=== PATIENT | male | born 1940 | race Caucasian/White ===

== ENCOUNTER 2017-08-25 05:50 | Inpatient (IN) | payer BC ==
[2017-08-19 15:25] VITALS: BMI 31.8
[2017-08-25] VITALS (24 sets, daily range): BP systolic 135–165; BP diastolic 66–81; PULSE 62–82; RESP 11–22; Ht 177.8 cm; Wt 99.4 kg
[~2017-08-25] VITALS: Ht 177.8 cm; Wt 99.4 kg
[2017-08-25] MEDS ORDERED: ALLO100T PO (06:32)
[2017-08-25] MEDS ORDERED: ATOR40TA68 PO (06:32)
[2017-08-25] MEDS ORDERED: DOCU50CA9 PO (06:44)
[2017-08-25] MEDS ORDERED: ESCI20TA PO (06:44)
[2017-08-25] MEDS ORDERED: OXYC15TA PO (06:44)
[2017-08-25] MEDS ORDERED: ISM20 PO (06:44)
[2017-08-25] MEDS ORDERED: CARI350T29 PO (06:44)
[2017-08-25] MEDS ORDERED: TAMS0.4C2 PO (06:44)
[2017-08-25] MEDS ORDERED: FLUT9.9S NASAL (06:44)
[2017-08-25] MEDS ORDERED: HYDR12.58 PO (06:44)
[2017-08-25] MEDS ORDERED: VIT1TABL32 PO (06:44)
[2017-08-25] MEDS ORDERED: BUPR150T6 PO (06:44)
[2017-08-25] MEDS ORDERED: LEVO25TA59 PO (06:44)
[2017-08-25] MEDS ORDERED: APIX5TAB PO (06:44)
[2017-08-25] MEDS ORDERED: POLYMYXIN/BACITRACIN 1L IRRIG ONE (06:49)
--- NOTE | 2017-08-25 06:53 | HPN ---
Date/Time of Note Date/Time of Note DATE: 08/25/17 TIME: 06:52 Interval H&P Admission Note Pt. seen H&P reviewed: No system changes JULIANN WOOD PA-C Aug 25, 2017 06:53
[2017-08-25] MEDS ORDERED: PROPOFOL 20 ML ONE (07:24)
[2017-08-25] MEDS ORDERED: GLYCOPYRROLATE 0.4 MG INJ ONE (07:24)
[2017-08-25] MEDS ORDERED: ROCURONIUM 50 MG INJ ONE (07:24)
[2017-08-25] MEDS ORDERED: CEFAZOLIN 1 GM INJ ONE (07:24)
[2017-08-25] MEDS ORDERED: ONDANSETRON 4 MG INJ ONE (07:24)
[2017-08-25] MEDS ORDERED: NEOSTIGMINE 3 MG/3 ML SYRINGE ONE (07:24)
[2017-08-25] MEDS ORDERED: MIDAZOLAM 1 MG/ML 2 ML INJ ONE (07:24)
[2017-08-25] MEDS ORDERED: FENTAnyl 50 MCG/ML VIAL ONE (07:24)
[2017-08-25] MEDS ORDERED: DEXAMETHASONE 4 MG/ML 1 ML INJ ONE (07:25)
[2017-08-25] MEDS ORDERED: ROPIVACAINE 0.5 % 30 ML VIAL ONE (07:28)
[2017-08-25] MEDS ORDERED: CEFAZOLIN 2 GM/50 ML (PMX) 50 ML (FOR WT < 120 KG) IVPB ONE (07:30)
[2017-08-25] MEDS ORDERED: TRANEXAMIC ACID 1,000 MG in SOD CHLORIDE 0.9% 100 ML IV ONE ×2 (07:30→08:00)
[2017-08-25] MEDS ORDERED: hydrALAzine 20 MG INJ ONE ×2 (07:51→09:28)
[2017-08-25] MEDS ORDERED: DIPHENHYDRAMINE 50 MG INJ IV PRN ×2 (08:30→10:30)
[2017-08-25] MEDS ORDERED: IPRATROPIUM (NEB) 0.5 MG/2.5 ML AMP HHN PRN (08:30)
[2017-08-25] MEDS ORDERED: ONDANSETRON 4 MG INJ IV PRN ×2 (08:30→10:30)
[2017-08-25] MEDS ORDERED: OXYCODONE/ACETAMINOPHEN (5/325) TAB PO PRN ×4 (08:30→10:30)
[2017-08-25] MEDS ORDERED: hydrALAzine 20 MG INJ IV PRN (08:30)
[2017-08-25] MEDS ORDERED: HYDROmorphONE (0.2 MG/ML) 10ML SYG IV PRN ×3 (08:30)
[2017-08-25] MEDS ORDERED: TRIMETHOBENZAMIDE 100 MG/ML VIAL IM PRN ×2 (08:30→10:30)
[2017-08-25] MEDS ORDERED: MIDAZOLAM 1 MG/ML 2 ML INJ IV PRN (08:30)
[2017-08-25] MEDS ORDERED: FENTAnyl 50 MCG/ML VIAL IV PRN ×3 (08:30)
[2017-08-25] MEDS ORDERED: EPHEDrine SULFATE 50 MG/5 ML SYG IV PRN (08:30)
[2017-08-25] MEDS ORDERED: ALBUTEROL 0.083% (NEB) 2.5 MG/3 ML AMP HHN PRN (08:30)
[2017-08-25] MEDS ORDERED: MEPERIDINE 25 MG INJ IV PRN (08:30)
[2017-08-25] MEDS ORDERED: LABETALOL HCL 20MG INJ IV PRN (08:30)
--- NOTE | 2017-08-25 09:45 | SIPON ---
Date/Time of Note Date/Time of Note DATE: 08/25/17 TIME: 09:43 Operative Report Preoperative Diagnosis Left shoulder osteoarthritis and avascular necrosis Postoperative Diagnosis Same Operation/Procedure Performed Left total shoulder replacement Surgeon see signature line vet assistant Dr. Timmy Quinn Second assist: JULIANN WOOD PA-C Anesthesia: general Estimated blood loss: 150 - 200 ml's Transfusion Required none Specimen bone Grafts/Implants DePuy 14 stem, 48 glenoid, 52 x 18 head Complications none JOSUE FONTAINE Aug 25, 2017 09:45
--- NOTE | 2017-08-25 09:50 | OPR ---
Date/Time of Note Date/Time of Note DATE: 08/25/17 TIME: 09:45 Operative Report Procedure Date: Aug 25, 2017 Preoperative Diagnosis Left shoulder osteoarthritis and avascular necrosis Postoperative Diagnosis Same Operation/Procedure Performed Left total shoulder replacement Surgeon see signature line Bottle Labeler Dr. Timmy Quinn Second Bottle Labeler: JULIANN WOOD PA-C Anesthesia Type: general Estimated Blood Loss: 150 - 200 ml's Transfusion none Specimen Bone Grafts/Implants depuy size 14 stem, 48 mm glenoid, 52 mm x 18 mm humeral head Tubes/Drains None Complications none Pt Condition Post Procedure: stable Disposition: PACU Indications The patient is a 76-year-old male with progressive and severe pain in his left shoulder related to avascular necrosis and osteoarthritis Procedure Description The patient was placed in a beachchair position. The cervical spine and head were stabilized with a Van headrest. The left shoulder was prepped and draped in usual manner. Preoperative antibiotics were administered. The left shoulder was approached anteriorly with a deltopectoral approach. The cephalic vein was identified and retracted laterally with the deltoid. The deltopectoral interval was developed. A biceps tenodesis was done. The capsule was opened 1 cm medial to the biceps groove and the subscapularis retracted medially. The conjoined tendon was retracted medially as well and the shoulder joint entered. There was severe osteoarthritis as well as softening of the humeral head with flattening related to avascular necrosis. The capsule around the proximal humerus was released significantly to allow external rotation and extension of the arm. This resulted in dislocation of the humeral head. The humeral neck cut was made in 30 of retroversion with the provided guide from the [place] shoulder system. The IM canal of the humerus was prepared for a size 14 humeral stem. The humerus was then retracted out of the way and the glenoid prepared. The glenoid was prepared for a 3 pegged component from the diffuse shoulder system. Once the glenoid was prepared the glenoid component was cemented in place. A 48 mm glenoid was used. Trials were done with a size 14 stem and a 52 mm x 18 mm head. This resulted in a stable shoulder with good range of motion. The trials were then removed. Final components were placed including a porous-coated size 14 stem with a 52 mm offset head. The shoulder was stable in all positions. Hemostasis was confirmed with electrocautery and the wound closed in layers including #2 Ethibond for repairing the subscapularis. #1 Vicryl for deep fascia, 2-0 Vicryl for subcutaneous tissue, 3-0 Monocryl for the skin. Patient was transferred to the recovery room in stable condition. JOSUE FONTAINE Aug 25, 2017 09:50
[2017-08-25] MEDS ORDERED: NA PHOSPHATE/BIPHOS 133 ML ENEMA PR PRN (10:30)
[2017-08-25] MEDS ORDERED: MAGNESIUM HYDROXIDE 30ML CUP PO PRN (10:30)
[2017-08-25] MEDS ORDERED: ZOLPIDEM 5 MG TAB PO PRN (10:30)
[2017-08-25] MEDS ORDERED: HYDROCODONE/APAP (5/325) TAB PO PRN ×2 (10:30)
[2017-08-25] MEDS ORDERED: BETHANECHOL 25 MG TAB PO PRN (10:30)
[2017-08-25] MEDS ORDERED: BISACODYL 10 MG SUPP PR PRN (10:30)
[2017-08-25] MEDS ORDERED: KETOROLAC 15 MG INJ IV PRN (10:30)
[2017-08-25] MEDS ORDERED: NACL 0.9% 3 ML SYG IV SCH (10:30)
[2017-08-25] MEDS ORDERED: IBUPROFEN 600 MG TAB PO PRN (11:00)
--- NOTE | 2017-08-25 11:14 | RADRPT ---
PROCEDURE: XR Left Shoulder. CLINICAL INDICATION: Left shoulder postoperative evaluation TECHNIQUE: 2 views of the left shoulder are available for review. COMPARISON: None available FINDINGS: There is a total left shoulder arthroplasty in anatomic alignment. There is overlying soft tissue swelling and soft tissue gas. No acute fracture is identified. The visualized left lung is clear. IMPRESSION: 1. Recent left shoulder total arthroplasty in anatomic alignment with overlying soft tissue swelling and gas. RPTAT: UU .Abram Gunderson MD, MD Date Time Electronically viewed and signed by .Abram Gunderson MD, MD on 08/25/2017 11:13 .K/
[2017-08-25] MEDS: CEFAZOLIN 1 GM/50 ML (PMX) 50 ML IVPB SCH ×2 (11:16→18:07)
[2017-08-25] MEDS ORDERED: ASPIRIN (EC) 325 MG TAB PO ONE (11:30)
[2017-08-25 11:45] LABS: BASOPHILS % 0.2 % (0.0-2.0); EOSINOPHILS % 0.4 % (0.0-7.0); HEMATOCRIT 42.6 % (42.0-52.0); HEMOGLOBIN 14.2 g/dl (14.0-18.0); LYMPHOCYTES # 0.7 10^3/ul (0.8-2.9); LYMPHOCYTES % 6.5 % (15.0-51.0); MEAN CORPUSCULAR HEMOGLOBIN 32.1 pg (29.0-33.0); MEAN CORPUSCULAR HGB CONC 33.3 g/dl (32.0-37.0); MEAN CORPUSCULAR VOLUME 96.2 fl (82.0-101.0); MEAN PLATELET VOLUME 9.8 fl (7.4-10.4); MONOCYTE # 0.2 10^3/ul (0.3-0.9); MONOCYTES % 1.5 % (0.0-11.0); NEUTROPHIL # 9.9 10^3/ul (1.6-7.5); NEUTROPHILS % 90.6 % (39.0-77.0); PLATELET COUNT 203 10^3/UL (140-415); RED BLOOD COUNT 4.43 10^6/ul (4.70-6.10); RED CELL DISTRIBUTION WIDTH 14.7 % (11.5-14.5); WHITE BLOOD COUNT 10.9 10^3/ul (4.8-10.8)
--- NOTE | 2017-08-25 11:58 | PDOCDIS ---
Discharge Instructions DIAGNOSIS Discharge Diagnosis Left total shoulder arthroplasty. CONDITION Patient Condition: Good HOME CARE INSTRUCTIONS: Diet Instructions: Regular ACTIVITY: Activity Restrictions: Slowly Increase Activity Rest between Activity Avoid heavy lifting (No weightbearing to the left upper extremity.) No Sexual Activity Do not Drive Do not operate Machinery Do not operate Power Tool Avoid Heavy Housework No Weight Bearing Bathing Restrictions: Shower (Mepilex dressing to remain on until seen postoperatively 10-14 days. Keep area clean and dry.) FOLLOW UP/APPOINTMENTS Follow-up Plan Follow-up 10-[address] Hsu. Postoperative appointment has been given to you at your preoperative examination. JULIANN WOOD PA-C Aug 25, 2017 11:58
[2017-08-25] MEDS ORDERED: LOPERAMIDE 2 MG CAP PO PRN (12:00)
[2017-08-25 12:26] LABS: CALCIUM 8.7 mg/dl (8.4-10.2); CREATININE 1.39 mg/dl (0.61-1.24); POTASSIUM 4.9 mmol/L (3.5-5.1)
[2017-08-25] MEDS ORDERED: CARISOPRODOL 350 MG TAB PO PRN (17:00)
--- NOTE | 2017-08-25 17:04 | HP ---
Date/Time of Note Date/Time of Note DATE: 08/25/17 TIME: 17:00 Assessment/Plan VTE Prophylaxis VTE Prophylaxis Intervention: other Lines/Catheters IV Catheter Type (from Nrs): Peripheral IV Urinary Cath still in place: No Assessment/Plan Chief Complaint/Hosp Course 1. Avascular necrosis in both shoulders status post left shoulder repair Pain control Likely DC home tomorrow 2. A. fib Continue Eliquis 3. History of coronary disease Continue home meds 4. Hypothyroidism Continue Synthroid Problems: HPI/ROS Admit Date/Time Admit Date/Time Aug 25, 2017 at 05:50 Hx of Present Illness Patient is a 76-year-old male with a history of A. fib, coronary disease status post stent placement, hypothyroidism as well as bilateral hip replacements, DJD of the spine and avascular necrosis in both shoulders now status post left shoulder replacement. Patient does currently report having some pain in the left shoulder, patient does take pain medications at home for his chronic back and shoulder pain. ROS Constitutional: improved, no complaints Eyes: no complaints ENT: no complaints Respiratory: no complaints Cardiovascular: no complaints Gastrointestinal: no complaints Genitourinary: no complaints Musculoskeletal: bone/joint pain Skin: no complaints Neurologic: no complaints Endocrine: no complaints Lymphatic: no complaints Psychological: nl mood/affect, no complaints Immunologic: no complaints PMH/Family/Social Past Medical History As per HPI Past Surgical History Bilateral hip replacement and now left shoulder replacement Family History Significant Family History: cancer (Colon cancer in the father) Social History Alcohol Use: none Smoking Status: Former smoker Drug Use: none Exam/Review of Systems Vital Signs Vitals Vital Signs Date Time Temp Pulse Resp B/P Pulse Ox O2 Delivery O2 Flow Rate FiO2 08/25/17 14:50 82 18 165/72 98 Nasal Cannula 2.0 08/25/17 12:35 98.2 Exam Constitutional: alert, oriented Respiratory: clear to auscultation Cardiovascular: regular rate and rhythm Gastrointestinal: soft, No distended Musculoskeletal: nl extremities to inspection Labs Result Diagram: 08/25/17 1129 08/25/17 1129 Medications Medications Current Medications Cefazolin Sodium (Ancef 1 Gm/50 ml (Pmx)) 50 ml @ 100 mls/hr Q8H IVPB Last administered on 08/25/17t 11:16; Admin Dose 100 MLS/HR; Start 08/25/17 at 11: 00; Stop 08/26/17 at 03:29 Senna/Docusate Sodium (Senokot-S) 1 tab BID PO ; Start 08/25/17 at 21:00 Simethicone (Mylicon) 80 mg TID PRN PO DISTENSION/GAS/BLOATING; Start at 10:30 Magnesium Hydroxide (Milk Of Mag) 30 ml BID PRN PO CONSTIPATION; Start at 10:30 Magnesium Hydroxide (Milk Of Mag) 30 ml HS PO ; Start 08/27/17 at 21:00 Bisacodyl (Dulcolax Supp) 10 mg DAILY PRN SD CONSTIPATION; Start 08/25/17 at 10:30 Sodium Biphosphate/ Sodium Phosphate (Fleet Enema) 133 ml DAILY PRN SD CONSTIPATION; Start 08/25/17 at 10:30 Loperamide HCl (Imodium Cap) 2 mg Q6H PRN PO DIARRHEA; Start 08/25/17 at 12:00 Gabapentin (Neurontin) 100 mg BID PO ; Start 08/25/17 at 21:00 Oxycodone/ Acetaminophen (Percocet (5/ 325)) 1 tab Q4H PRN PO PAIN LEVEL 1-5; Start 08/25/17 at 10:30 Oxycodone/ Acetaminophen (Percocet (5/ 325)) 2 tab Q4H PRN PO PAIN LEVEL 6-10 Last administered on 08/25/17t 15:55; Admin Dose 2 TAB; Start 08/25/17 at 10: 30 Acetaminophen/ Hydrocodone Bitart ([place] (5/325)) 1 tab Q4H PRN PO PAIN LEVEL 1 -5; Start 08/25/17 at 10:30 Acetaminophen/ Hydrocodone Bitart ([place] (5/325)) 2 tab Q4H PRN PO PAIN LEVEL 6 -10; Start 08/25/17 at 10:30 Ketorolac Tromethamine (Toradol) 15 mg Q6H PRN IV PAIN Last administered on t 13:28; Admin Dose 15 MG; Start 08/25/17 at 10:30; Stop 08/28/17 at 10: 29 Ibuprofen (Motrin) 600 mg Q6H PRN PO PAIN; Start 08/25/17 at 11:00 Ondansetron HCl (Zofran Inj) 4 mg Q6H PRN IV NAUSEA AND/OR VOMITING; Start at 10:30 Trimethobenzamide HCl (Tigan) 200 mg Q6H PRN IM NAUSEA AND/OR VOMITING; Start 08/25/17 at 10:30 Diphenhydramine HCl (Benadryl) 25 mg Q6H PRN IV PRURITUS; Start 08/25/17 at 10 :30 Celecoxib (Celebrex) 100 mg BID PO ; Start 08/25/17 at 21:00 TAY OLIVA Aug 25, 2017 17:04
[2017-08-25] MEDS ORDERED: CELECOXIB 100 MG CAP PO SCH (18:00)
[2017-08-25] MEDS: ESCITALOPRAM 10 MG TAB PO SCH (18:07)
[2017-08-25] MEDS: morphine 4 MG/ML VIAL IV PRN (18:08)
[2017-08-25] MEDS ORDERED: ESCITALOPRAM 10 MG TAB PO SCH (21:00)
[2017-08-25] MEDS ORDERED: ATORVASTATIN 10 MG TAB PO SCH (21:00)
[2017-08-25] MEDS ORDERED: GABAPENTIN 300 MG CAP PO SCH (21:00)
[2017-08-25] MEDS ORDERED: ATORVASTATIN 40 MG TAB PO SCH (21:00)
[2017-08-25] MEDS: BUPROPION (XL) 150 MG TAB PO SCH (21:18)
[2017-08-25] MEDS: CELECOXIB 100 MG CAP PO SCH (21:18)
[2017-08-25] MEDS: SENNA/DOCUSATE NA (8.6MG/50MG) TAB PO SCH (21:18)
[2017-08-25] MEDS: GABAPENTIN 100 MG CAP PO SCH (21:18)
[2017-08-25] MEDS: APIXABAN 5 MG TABLET PO SCH (21:19)
[2017-08-26] MEDS: morphine 4 MG/ML VIAL IV PRN ×5 (03:31→15:36)
[2017-08-26] MEDS: CEFAZOLIN 1 GM/50 ML (PMX) 50 ML IVPB SCH (04:04)
[2017-08-26 06:05] LABS: BASOPHILS % 0.3 % (0.0-2.0); EOSINOPHILS # 0.1 10^3/ul (0.0-0.5); HEMATOCRIT 37.3 % (42.0-52.0); HEMOGLOBIN 12.1 g/dl (14.0-18.0); LYMPHOCYTES # 1.4 10^3/ul (0.8-2.9); MEAN CORPUSCULAR HEMOGLOBIN 31.6 pg (29.0-33.0); MEAN CORPUSCULAR HGB CONC 32.4 g/dl (32.0-37.0); MEAN CORPUSCULAR VOLUME 97.4 fl (82.0-101.0); MEAN PLATELET VOLUME 10.1 fl (7.4-10.4); MONOCYTE # 1.1 10^3/ul (0.3-0.9); MONOCYTES % 10.6 % (0.0-11.0); NEUTROPHIL # 7.9 10^3/ul (1.6-7.5); NEUTROPHILS % 74.6 % (39.0-77.0); PLATELET COUNT 175 10^3/UL (140-415); RED BLOOD COUNT 3.83 10^6/ul (4.70-6.10); RED CELL DISTRIBUTION WIDTH 14.7 % (11.5-14.5); WHITE BLOOD COUNT 10.6 10^3/ul (4.8-10.8)
[2017-08-26 06:44] LABS: MAGNESIUM 1.6 mg/dl (1.7-2.5); PHOSPHORUS 3.6 mg/dl (2.5-4.9)
[2017-08-26 06:58] LABS: CALCIUM 7.2 mg/dl (8.4-10.2); CREATININE 0.98 mg/dl (0.61-1.24); POTASSIUM 3.3 mmol/L (3.5-5.1)
[2017-08-26] MEDS ORDERED: LEVOTHYROXINE 25 MCG TAB PO SCH (07:00)
[2017-08-26 07:17] VITALS: BP 188/83; RESP 20
[2017-08-26] MEDS ORDERED: BETA CAROTENE/VIT C/E/MIN TAB PO SCH (09:00)
[2017-08-26] MEDS ORDERED: FLUTICASONE 0.05% 16 GM NAS SPRAY NASAL SCH (09:00)
[2017-08-26] MEDS ORDERED: HYDROCHLOROTHIAZIDE 12.5 MG CAP PO SCH (09:00)
[2017-08-26] MEDS ORDERED: ALLOPURINOL 100 MG TAB PO SCH (09:00)
[2017-08-26] MEDS ORDERED: ISOSORBIDE MONONITRATE 20 MG TAB PO SCH (09:00)
[2017-08-26] MEDS: BUPROPION (XL) 150 MG TAB PO SCH ×2 (09:17→12:15)
[2017-08-26] MEDS: CELECOXIB 100 MG CAP PO SCH (09:18)
[2017-08-26] MEDS: GABAPENTIN 100 MG CAP PO SCH (09:18)
[2017-08-26] MEDS: SENNA/DOCUSATE NA (8.6MG/50MG) TAB PO SCH (09:18)
[2017-08-26] MEDS: APIXABAN 5 MG TABLET PO SCH (09:18)
[2017-08-26] MEDS: ESCITALOPRAM 10 MG TAB PO SCH (09:21)
[2017-08-26] MEDS ORDERED: POTASSIUM CHLORIDE (SR) 20 MEQ TAB PO STA (11:26)
[2017-08-26] MEDS ORDERED: MAGNESIUM SULFATE 3 GM in DEXTROSE 5% 100 ML IVPB ONE (11:30)
--- NOTE | 2017-08-26 11:53 | PN ---
Date/Time of Note Date/Time of Note DATE: 08/26/17 TIME: 11:49 Assessment/Plan VTE Prophylaxis VTE Prophylaxis Intervention: ambulation, SCD's, other (Aspirin 325 mg) Lines/Catheters IV Catheter Type (from Nrsg): Saline Lock Sandhu in Place (from Nrsg): No Assessment/Plan Assessment/Plan -Pain Meds as needed -ASA for DVT Prophylaxis x 4 weeks outpatient discussed. -Continue monitoring as outpatient on discharge -Follow-up at scheduled postop outpatient appointment or sooner if there is any issue. -Patient Stable -Discharge to Home with home health Subjective 24 Hr Interval Summary 76-year-old male postop day 1 status post total shoulder arthroplasty to the left side. Patient did have increased pain overnight but states that majority of his pain was due to chronic back pain. He denies any severe pain to the shoulder. Denies any radiating symptoms down the upper extremity. Pain Control: well controlled Exam/Review of Systems Vital Signs Vitals Vital Signs Date Time Temp Pulse Resp B/P Pulse Ox O2 Delivery O2 Flow Rate FiO2 08/26/17 07:17 98.3 58 20 188/83 98 08/25/17 14:50 Nasal Cannula 2.0 Intake and Output 08/25/17 08/25/17 08/26/17 14:59 22:59 06:59 Intake Total 2220 ml 850 ml 50 ml Output Total 480 ml 700 ml Balance 1740 ml 150 ml 50 ml Exam Free Text/Dictation * No complications to wound/dressing. * Pain controlled while in patient room. * Normal sensory examination to the left upper extremity. * Patient is able to move hand and wrist without complication. Upper extremity is in sling. Constitutional: alert, oriented, well developed Results Result Diagram: 08/26/17 0431 08/26/17 0431 JULIANN WOOD PA-C Aug 26, 2017 11:53
[2017-08-26 12:22] VITALS: BP 117/68; PULSE 69; RESP 20
--- NOTE | 2017-08-26 13:32 | RADRPT ---
PROCEDURE: XR LEFT HIP. CLINICAL INDICATION: Hip pain TECHNIQUE: 2 views views of the left hip were performed. COMPARISON: None. FINDINGS: There is no evidence of acute fracture dislocation of the left hip. Status post left hip arthroplast y, with near anatomic alignment. Bony mineralization and alignment are unremarkable. No significant degenerative changes. The soft tissue structures are unremarkable. The left SI joint, pubic rami, an d iliac wing appear to be intact. There is normal mineralization and alignment. IMPRESSION: 1. Status post left hip arthroplasty, with near anatomic alignment. No acute fractures or dislocatio n. RPTAT: AAPP Physician Li Date Time Electronically viewed and signed by Physician Li on 08/26/2017 13:31 JL/
--- NOTE | 2017-08-26 17:57 | PN ---
Date/Time of Note Date/Time of Note DATE: 08/26/17 TIME: 17:56 Assessment/Plan VTE Prophylaxis VTE Prophylaxis Intervention: other Assessment/Plan Chief Complaint/Hosp Course 1. Avascular necrosis in both shoulders status post left shoulder repair Discharge home today by orthopedist 2. A. fib Continue Eliquis 3. History of coronary disease Continue home meds 4. Hypothyroidism Continue Synthroid 5. History of bilateral hip replacement Patient did report pain in left hip, x-ray of the left hip showed no acute findings Problems: Subjective 24 Hr Interval Summary Musculoskeletal: bone/joint pain (Left hip pain) Exam/Review of Systems Vital Signs Vitals Vital Signs Date Time Temp Pulse Resp B/P Pulse Ox O2 Delivery O2 Flow Rate FiO2 08/26/17 12:22 69 20 117/68 96 Room Air 08/26/17 07:17 98.3 08/25/17 14:50 2.0 Intake and Output 08/25/17 08/25/17 08/26/17 15:00 23:00 07:00 Intake Total 2220 ml 850 ml 550 ml Output Total 480 ml 700 ml 750 ml Balance 1740 ml 150 ml -200 ml Exam Constitutional: alert, oriented Respiratory: clear to auscultation Cardiovascular: regular rate and rhythm Gastrointestinal: soft, No distended Musculoskeletal: nl extremities to inspection Results Result Diagram: 08/26/17 0431 08/26/17 0431 Results 24 hrs Laboratory Tests Test 08/26/17 04:31 White Blood Count 10.6 Red Blood Count 3.83 L Hemoglobin 12.1 L Hematocrit 37.3 L Mean Corpuscular Volume 97.4 Mean Corpuscular Hemoglobin 31.6 Mean Corpuscular Hemoglobin Concent 32.4 Red Cell Distribution Width 14.7 H Platelet Count 175 Mean Platelet Volume 10.1 Neutrophils % 74.6 Lymphocytes % 13.0 L Monocytes % 10.6 Eosinophils % 1.0 Basophils % 0.3 Nucleated Red Blood Cells % 0.0 Neutrophils # 7.9 H Lymphocytes # 1.4 Monocytes # 1.1 H Eosinophils # 0.1 Basophils # 0.0 Nucleated Red Blood Cells # 0.0 Sodium Level 144 Potassium Level 3.3 L Chloride Level 111 H Carbon Dioxide Level 24 Anion Gap 12 Blood Urea Nitrogen 23 H Creatinine 0.98 Glucose Level 91 # Calcium Level 7.2 L Phosphorus Level 3.6 Magnesium Level 1.6 L TAY OLIVA Aug 26, 2017 17:57
[2017-08-26] MEDS ORDERED: TAMSULOSIN (SR) 0.4 MG CAP PO SCH (21:00)
[2017-08-27] MEDS ORDERED: MAGNESIUM HYDROXIDE 30ML CUP PO SCH (21:00)
--- NOTE | 2017-08-28 08:11 | DS ---
Date/Time of Note Date/Time of Note DATE: 08/28/17 TIME: 08:09 Discharge Summary Admission/Discharge Info Admit Date/Time Aug 25, 2017 at 05:50 Discharge Date/Time Aug 26, 2017 at 16:00 Discharge Diagnosis Left total shoulder arthroplasty. Patient Condition: Good Hospital Course On the day of admission, the patient underwent left total shoulder arthroplasty Intraoperative complications: None Postoperative complications: None The patient was given prophylactic antibiotics and anticoagulants. On the day of surgery and first postoperative day patient was started on gait training and was taught usual restrictions following shoulder replacement On postoperative day 1 dressing was clean dry and intact. No complications were observed. On the day of discharge, the wound was clean and healing well; there was no sign of infection. Wound care instructions were discussed with the patient. Discharge Temperature: 98.3 Discharge White Blood Cell Count: 10.6 Discharge Hemoglobin: 12.1 The patient was discharged home with home health. Arrangements were made for visiting nurses and home health/physical therapy. The patient will be seen in office at scheduled postoperative evaluation date given on their preoperative exam. Should patient complain of any problems prior to scheduled postoperative evaluation date, they may call into outpatient clinic to determine if they need to be scheduled at sooner appointment to be seen immediately if needed. Discharge medications: As per medication reconciliation form Diet: Same as preadmission diet. This is Juliann Hinkle PA-C dictating discharge summary for Dr. Hsu. Home Meds Reported Medications Docusate Sodium* (Stool Softener*) 50 Mg Capsule, 50 MG PO DAILY, CAP 08/25/17 Tamsulosin Hcl* (Tamsulosin Hcl*) 0.4 Mg Cap.er.24h, 0.4 MG PO DAILY, CAP 08/25/17 Oxycodone Hcl* (IR) (Oxycodone Hcl*) 15 Mg Tablet, 15 MG PO Q4H Y for PAIN, TAB 08/25/17 Vit A,C & E/Lutein/Minerals (Ocuvite) 1 Each Tablet, 1 TAB PO DAILY, TAB 08/25/17 Levothyroxine Sodium* (Synthroid*) 25 Mcg Tablet, 25 MCG PO BEFORE BREAKFAST, # 30 TAB 08/25/17 Isosorbide Mononitrate* (Isosorbide Mononitrate*) 20 Mg Tablet, 30 MG PO DAILY, TAB 08/25/17 Hydrochlorothiazide* (Hydrochlorothiazide*) 12.5 Mg Tablet, 12.5 MG PO DAILY, # 30 TAB 08/25/17 Fluticasone Propionate (Flonase Allergy Relief) 9.9 Ml [place].susp, 3 SPRAY NASAL DAILY, #1 BOTTLE TO EACH NOSTRIL 08/25/17 Escitalopram Oxalate* (Lexapro*) 20 Mg Tablet, 20 MG PO BID, #30 TAB 08/25/17 Apixaban* (Eliquis*) 5 Mg Tablet, 5 MG PO BID, TAB 08/25/17 Carisoprodol* (Carisoprodol*) 350 Mg Tablet, 350 MG PO Q8 Y for MUSCLE SPASMS, TAB 08/25/17 Bupropion Hcl* (Bupropion XL*) 150 Mg Tab.er.24h, 150 MG PO TID, TAB.SA 08/25/17 Atorvastatin* (Atorvastatin*) 40 Mg Tablet, 10 MG PO QHS, #30 TAB 08/25/17 Allopurinol* (Allopurinol*) 100 Mg Tablet, 100 MG PO DAILY, TAB 08/25/17 Follow-up Plan Follow-up 10-[address] Hsu. Postoperative appointment has been given to you at your preoperative examination. Primary Care Provider Not On Staff Doctor Pending Labs Laboratory Tests Test 08/27/17 12:01 Lab Scanned Report REFERENCE [id number] JULIANN WOOD PA-C Aug 28, 2017 08:11
== END 2017-08-26 16:00 | disposition home health service (06) | DRG 483 ==
LOC: REC 05:50 → MS1 12:34
PROVIDERS: ADMIT Orthopaedic Surgery; ATTEND Orthopaedic Surgery
PROC: 0RRK0JZ Replacement of Left Shoulder Joint with Synthetic Substitute, Open Approach (ICD-10-PCS; principal; 2017-08-25 07:30)
DX: M87.822 Other osteonecrosis, left humerus (principal); I48.91 Unspecified atrial fibrillation; M19.012 Primary osteoarthritis, left shoulder; Z79.01 Long term (current) use of anticoagulants; I25.10 Atherosclerotic heart disease of native coronary artery without angina pectoris; E03.9 Hypothyroidism, unspecified; M54.9 Dorsalgia, unspecified
CPT/HCPCS: 73030; 73510; 80048; 83735; 84100; 85025; 86850; 86900; 86901; 87081; 88304; 88311; 97116; 97163; 97166; 97530; C1776; J0360; J0690; J1100; J1885; J2175; J2250; J2270; J2405; J2710; J2795; J3010; J3475

== ENCOUNTER 2018-02-11 05:42 | Inpatient (IN) | END 2018-02-12 14:56 | disposition home health service (06) | DRG 483 ==